=== PATIENT | female | born 1945 | race Caucasian/White ===

== ENCOUNTER 2023-12-05 10:19 | Emergency (ER) | payer BC, OTHER ==
[~2023-12-05] VITALS: Ht 157.5 cm; Wt 57.2 kg
[~2023-12-05 10:19] MED LIST: LEVO25TA2 PO; VALS40TA4 PO
[2023-12-05 10:38] VITALS: TEMP 98.6
[2023-12-05 12:05] VITALS: BP 133/70
[2023-12-05 12:17] VITALS: O2SAT 18
== END 2023-12-05 12:33 | disposition home or self-care (01) ==
LOC: ER 10:28
DX: S80.02XA Contusion of left knee, initial encounter (principal); S80.01XA Contusion of right knee, initial encounter; I10 Essential (primary) hypertension; Z87.442 Personal history of urinary calculi; Z98.890 Other specified postprocedural states; Z79.899 Other long term (current) drug therapy; W01.0XXA Fall on same level from slipping, tripping and stumbling without subsequent striking against object, initial encounter; Y93.89 Activity, other specified; Y92.89 Other specified places as the place of occurrence of the external cause; Y99.8 Other external cause status
CPT/HCPCS: 73564-TC